=== PATIENT | female | born 1980 | race Caucasian/White ===

== ENCOUNTER 2018-12-08 12:06 | Emergency (ER) | payer OTHER ==
[~2018-12-08] VITALS: Ht 152.4 cm; Wt 60.3 kg
[2018-12-08] MEDS ORDERED: DIPHTH,PERTUSS(ACELL),TET TOX 0.5 ML DISP.SYRIN. VAX IM ONE (12:45)
[2018-12-08] MEDS ORDERED: HYDROmorphone PF 1 MG/ML DISP.SYRIN ONE (13:13)
--- NOTE | 2018-12-08 13:22 | RAD ---
EXAM: Left foot, 3 views; left knee, 3 views; left tibia and fibula, 2 views. HISTORY: Lawnmower injury. COMPARISON: None. FINDINGS: 3 views of the left foot, 3 views of the left knee and 2 views of the tibia and fibula are obtained. There are mildly displaced comminuted fractures of the second and third distal phalanges. There are also mildly displaced fractures involving the distal aspects of the third and fourth proximal phalanges and likely the proximal aspects of the fourth and fifth middle phalanges. There is lucency involving the tuft of the first distal phalanx which may also be due to a nondisplaced fracture. There are few punctate radiodensities along the distal Achilles tendon on the lateral view of the tibia and fibula. The absence of this finding on the dedicated lateral foot radiograph favors film artifact. No convincing foreign body is seen. IMPRESSION: 1. Displaced comminuted fractures of the second and third distal phalanges and distal aspects of the third and fourth proximal phalanges and likely the proximal fourth and fifth middle phalanges. 2. Lucency involving the tuft of the first distal phalanx, possibly due to a nondisplaced fracture. Correlate for pain in this location. 3. No evidence of a radiodense foreign body. Electronically signed by: Justine Hahn MD (12/08/2018 1:19 PM) [facility]
[2018-12-08] MEDS ORDERED: HYDROmorphone PF 1 MG/ML DISP.SYRIN IV ONE ×2 (13:30→15:00)
--- NOTE | 2018-12-08 13:57 | PHYS DOC ---
Past History Past Medical History: No Pertinent History Past Surgical History: Alcohol Use: Rarely Drug Use: None Adult General Chief Complaint Chief Complaint: LACERATION/AVULSION HPI HPI Patient is a 38-year-old female who presents with foot injury after getting foot caught under a riding lawnmower. Motor was of the stand/riding mower and we'll rolled over foot and boot got pulled into mower when he got caught into the blades. The entire top of the boot was ripped off and patient's foot was injured. Patient indicates that the wheel road all the way up her webb and onto her left knee. Patient rates her pain at a 9 out of 10 and states that the pain is primarily in her toes. Patient indicates that she is not up-to-date on tetanus. Review of Systems Review of Systems Constitutional: Denies fever or chills [] Respiratory: Denies cough or shortness of breath [] Cardiovascular: No additional information not addressed in HPI [] GI: Denies abdominal pain, nausea, vomiting or diarrhea [] Musculoskeletal: Positive left knee, lower leg and foot/toe pain [] Integument: There is a laceration to the left third toe with evulsion of the entire nail[] Neurologic: Denies headache, focal weakness or sensory changes [] All other systems were reviewed and found to be within normal limits, except as documented in this note. Current Medications Current Medications Current Medications Medications (Trade) Dose Ordered Sig/[facility] Start Time Stop Time Status Last Admin Dose Admin Cefazolin Sodium 2 gm/Dextrose 50 ml @ 100 mls/hr 1X ONCE 12/08/18 13:45 12/08/18 14:14 UNV Diphtheria/ Tetanus/[facility]cell Pertussis (Boostrix) 0.5 ml ONCE ONCE 12/08/18 12:45 12/08/18 12:46 DC 12/08/18 13:21 0.5 ML Fentanyl Citrate (Fentanyl 2ml Vial) 50 mcg 1X ONCE 12/08/18 12:30 12/08/18 12:31 DC 12/08/18 12:30 50 MCG Hydromorphone HCl (Dilaudid) 1 mg 1X ONCE 12/08/18 13:30 12/08/18 13:31 DC 12/08/18 13:16 1 MG Allergies Allergies Allergies Coded Allergies Type Severity Reaction Last Updated Verified Penicillins Allergy Unknown 12/08/18 Yes Physical Exam Physical Exam Constitutional: Well developed, well nourished, in mild distress, non-toxic appearance. [] HENT: Normocephalic, atraumatic, bilateral external ears normal, oropharynx moist, no oral exudates, nose normal. [] Eyes: PERRLA, EOMI, conjunctiva normal, no discharge. [] Neck: Normal range of motion, no tenderness, supple, no stridor. [] Cardiovascular:Heart rate regular rhythm, no murmur [] Lungs & Thorax: Bilateral breath sounds clear to auscultation [] Abdomen: Bowel sounds normal, soft, no tenderness. [] Skin: Warm, dry. [] Extremities: Examination of the left lower extremity demonstrates avulsion of the middle toe nail with laceration along the medial aspect of the toe with deformity noted to the distal toe. There is also a subungual hematoma at the second digit. All toes demonstrate significant tenderness to palpation throughout. There is mild abrasion to the anterior aspect of the lower leg and diffuse tenderness about the left knee with apparent joint effusion. [] Neurologic: Alert and oriented X 3, normal motor function, normal sensory function, no focal deficits noted. [] Current Patient Data Vital Signs Vital Signs Date Time Temp Pulse Resp B/P (MAP) Pulse Ox O2 Delivery O2 Flow Rate FiO2 12/08/18 12:06 97.8 71 20 99 Room Air EKG EKG [] Radiology/Procedures Radiology/Procedures [] Impressions: PROCEDURE: FOOT LEFT 3V EXAM: Left foot, 3 views; left knee, 3 views; left tibia and fibula, 2 views. HISTORY: Lawnmower injury. COMPARISON: None. FINDINGS: 3 views of the left foot, 3 views of the left knee and 2 views of the tibia and fibula are obtained. There are mildly displaced comminuted fractures of the second and third distal phalanges. There are also mildly displaced fractures involving the distal aspects of the third and fourth proximal phalanges and likely the proximal aspects of the fourth and fifth middle phalanges. There is lucency involving the tuft of the first distal phalanx which may also be due to a nondisplaced fracture. There are few punctate radiodensities along the distal Achilles tendon on the lateral view of the tibia and fibula. The absence of this finding on the dedicated lateral foot radiograph favors film artifact. No convincing foreign body is seen. IMPRESSION: 1. Displaced comminuted fractures of the second and third distal phalanges and distal aspects of the third and fourth proximal phalanges and likely the proximal fourth and fifth middle phalanges. 2. Lucency involving the tuft of the first distal phalanx, possibly due to a nondisplaced fracture. Correlate for pain in this location. 3. No evidence of a radiodense foreign body. Electronically signed by: Justine Hahn MD (12/08/2018 1:19 PM) [facility] Course & Med Decision Making Course & Med Decision Making Pertinent Labs and Imaging studies reviewed. (See chart for details) Patient moved to room upon arrival was evaluated by your medical staff after which patient given additional pain medication. Patient was sent down for imaging of the left knee, tib-fib, foot and toes. Upon review of imaging, it was evident that patient would need a washout of the third digit. Patient also will likely need operative management of other fractures. Findings were discussed with patient and family and recommendation for transfer to was made. Family and patient are in agreement with this. transfer Center was then contacted and Dr. Carlos Calixto will accept patient in transfer. Dragon Disclaimer Dragon Disclaimer This electronic medical record was generated, in whole or in part, using a voice recognition dictation system. Departure Departure: Impression: Primary Impression: Fracture of toe, open Additional Impression: Fracture of toe, closed Disposition: XFER SHT-TRM HOSP Condition: GOOD Referrals: PCP,NO (PCP) Problem Qualifiers Primary Impression: Fracture of toe, open Encounter type: initial encounter Toe: unspecified toe Fracture alignment: displaced Laterality: left Qualified Codes: S92.912B - Unspecified fracture of left toe(s), initial encounter for open fracture Additional Impression: Fracture of toe, closed Encounter type: initial encounter Toe: unspecified toe Fracture alignment: displaced Laterality: left Qualified Codes: S92.912A - Unspecified fracture of left toe(s), initial encounter for closed fracture DARIO NEAL Jr. DO December 08, 2018 13:57
[2018-12-08] MEDS ORDERED: ceFAZolin SODIUM 2 GM in IV DEXTROSE 5% 50 ML IV ONE (14:00)
[2018-12-08 14:39] VITALS: BP 117/78
== END 2018-12-08 15:23 | disposition short-term general hospital (02) ==
LOC: ER 12:06
DX: S92.532A Displaced fracture of distal phalanx of left lesser toe(s), initial encounter for closed fracture (principal); V98.8XXA Other specified transport accidents, initial encounter; Y93.89 Activity, other specified; Y92.89 Other specified places as the place of occurrence of the external cause; Y99.8 Other external cause status; Z88.0 Allergy status to penicillin
CPT/HCPCS: 73562; 73590; 73630; 90471; 90715; 96374; 96375; 96376; 99285; J1170; J3010